=== PATIENT | male | born 1985 | race Asian ===

== ENCOUNTER 2016-08-18 15:13 | Emergency (ER) | payer OTHER, MEDICAID ==
[2016-08-18] MEDS ORDERED: IBUPROFEN 800 MG TABLET PO ONE (16:13)
[2016-08-18] MEDS: IBUPROFEN 800 MG TABLET PO STA (16:16)
== END 2016-08-18 16:39 | disposition home or self-care (01) ==
DX: S92.325A Nondisplaced fracture of second metatarsal bone, left foot, initial encounter for closed fracture (principal); S90.812A Abrasion, left foot, initial encounter; W20.8XXA Other cause of strike by thrown, projected or falling object, initial encounter; Y93.89 Activity, other specified; Y92.89 Other specified places as the place of occurrence of the external cause; Y99.0 Civilian activity done for income or pay; R03.0 Elevated blood-pressure reading, without diagnosis of hypertension; F17.200 Nicotine dependence, unspecified, uncomplicated
CPT/HCPCS: 1040M; 29515; 73630; 99283; A9270

== ENCOUNTER 2016-10-28 19:18 | Emergency (ER) | payer SELFPAY ==
[2016-10-28 19:27] VITALS: BP 133/79
[2016-10-28] MEDS ORDERED: oxyCOD/ACETAMIN 5 MG/325 MG TABLET PO STA (20:17)
[2016-10-28] MEDS ORDERED: CLINDAMYCIN 150 MG CAPSULE PO STA (20:17)
--- NOTE | 2016-10-28 20:21 | ED Physician Documentation ---
PD HPI HEENT - Stated complaint Stated Complaint: JAW,MOUTH PX,SWELLING - Chief complaint Chief Complaint: Heent - History obtained from History obtained from: Patient - History of Present Illness Timing - onset: How many weeks ago (1) Timing - details: Gradual onset, Still present Location: Right ear, Left ear, Mouth Worsens: Swalllowing Associated symptoms: No: Fever Similar symptoms before: Has not had sx before Recently seen: Not recently seen - Additional information Additional information: Patient is a 31 year old male with no significant past medical history who is presenting to the emergency department for mouth pain and bleeding gums. patient states that the symptoms have been going on for the last few weeks. Patient states that he has been brushing his teeth a lot but it has led to bleeding gums. Patient has bilateral wisdom teeth coming in and has dental follow up in a few days. Review of Systems Constitutional: denies: Fever, Chills Eyes: denies: Loss of vision, Decreased vision Ears: reports: Ear pain. denies: Loss of hearing Nose: denies: Rhinorrhea / runny nose, Congestion Throat: reports: Dental pain / toothache, Oral lesions / sores Cardiac: denies: Chest pain / pressure, Palpitations Respiratory: denies: Cough, Wheezing GI: denies: Abdominal Pain, Nausea, Vomiting : reports: Dysuria Musculoskeletal: denies: Neck pain, Extremity pain Neurologic: denies: Generalized weakness, Focal weakness Immunocompromised: denies: Immunocompromised PD PAST MEDICAL HISTORY - Past Medical History Past Medical History: Yes Cardiovascular: None Respiratory: None Endocrine/Autoimmune: None GI: None : None Psych: Bipolar disorder - Past Surgical History Past Surgical History: No Derm: Other - Present Medications Home Medications: Ambulatory Orders Medication Instructions Recorded Confirmed Chlorhexidine Gluconate 15 ml MM Q6H #450 ml 10/28/16 Clindamycin [Cleocin] 450 mg PO Q6H 7 Days 10/28/16 - Allergies Allergies/Adverse Reactions: Allergies Allergy/AdvReac Type Severity Reaction Status Date / Time Penicillins Allergy Unknown Verified 10/28/16 19:27 - Social History Does the pt smoke?: No Smoking Status: Former smoker Does the pt drink ETOH?: Yes Does the pt have substance abuse?: No - Immunizations Immunizations are current?: Yes - POLST Patient has POLST: No PD ED PE NORMAL - Vitals Vital signs reviewed: Yes - General General: Alert and oriented X 3, Well developed/nourished - HEENT HEENT: Atraumatic, PERRL, Pharynx benign - Neck Neck: Supple, no meningeal sign, No JVD - Cardiac Cardiac: RRR, No murmur - Respiratory Respiratory: No respiratory distress - Abdomen Abdomen: Soft, Non tender, Non distended - Derm Derm: Normal color, Warm and dry, No rash - Extremities Extremities: Normal ROM s pain, No edema - Neuro Neuro: Alert and oriented X 3, abrasive band winder 2-12 intact, No motor deficit, No sensory deficit, Normal speech - Psych Psych: Normal mood, Normal affect PD ED PE EXPANDED - HEENT HEENT: Dental decay, Other (bilateral impacted molars, and gingivitis, mild surrounding erythema, no abscess or fluid collection) Results - Vitals Vitals: Vital Signs - 24 hr 10/28/16 19:24 Temperature 36.7 C Heart Rate 80 Respiratory 17 Rate Blood Pressure 133/79 H O2 Saturation 99 Oxygen O2 Source Room air PD MEDICAL DECISION MAKING - ED course Complexity details: reviewed results, re-evaluated patient, considered differential, d/w patient ED course: Patient was seen and examined at bedside. Patient's vital signs were within normal limits. Patient had signs of gingivitis and developing infection around the molars. Patient was treated with clindamycin due to the penicillin allergy as well as one percocet. Prescriptions were written. Patient required no further inpatient work up at this time and patient was stable for discharge with outpatient follow up. Departure - Departure Disposition: 01 Home, Self Care Clinical Impression: Gingivitis Condition: Good Instructions: ED Abscess Tooth Follow-Up: Inga Nelson PA-C [Primary Care Provider] - Within 3 Days Prescriptions: Chlorhexidine Gluconate 15 ml MM Q6H #450 ml Clindamycin [Cleocin] 450 mg PO Q6H 7 Days Comments: Your symptoms today are being caused by gingivitis and impacted wisdom teeth. You will have your first dose of antibiotics today and will need to take it 4 times a day for the next week. You will also need to use the antibiotic rinse four times a day. You should take the antibiotics with yogurt or probiotics. You can use motrin or tylenol as needed for pain. You should go to your appointment at [facility] in two days. You may return to the emergency department at any time for new, worsening or uncontrollable symptoms. Discharge Date/Time: 10/28/16 20:29
[2016-10-28] MEDS ORDERED: oxyCOD/ACETAMIN 5 MG/325 MG TABLET PO ONE (20:23)
[2016-10-28] MEDS ORDERED: CLINDAMYCIN 150 MG CAPSULE PO ONE (20:24)
== END 2016-10-28 20:29 | disposition home or self-care (01) ==
LOC: ED 19:18
DX: K05.10 Chronic gingivitis, plaque induced (principal); Z87.891 Personal history of nicotine dependence
CPT/HCPCS: 99283; A9270

== ENCOUNTER 2018-05-30 14:46 | Emergency (ER) | payer SELFPAY ==
[2018-05-30] MEDS ORDERED: KETOROLAC 30 MG/ML VIAL IVP STA (15:10)
[2018-05-30] MEDS ORDERED: IPRATROPIUM/ALBUTEROL 3 ML NEB INH STA (15:10)
[2018-05-30] MEDS ORDERED: DEXAMETHASONE 10 MG/ML VIAL IVP STA (15:11)
[2018-05-30 15:14] LABS: BASOPHILS # (AUTO) 0.1 10^3/uL (0.0-0.1); BASOPHILS % (AUTO) 1.8 %; EOSINOPHILS # (AUTO) 0.2 10^3/uL (0.0-0.7); EOSINOPHILS % (AUTO) 2.5 %; HGB - HEMOGLOBIN 14.5 g/dL (14.0-18.0); LYMPHOCYTES # (AUTO) 1.9 10^3/uL (1.5-3.5); LYMPHOCYTES % (AUTO) 28.1 %; MEAN CORPUSCULAR HEMOGLOBIN 29.6 pg (27.0-31.0); MEAN CORPUSCULAR HGB CONC 34.3 g/dL (32.0-36.0); MEAN CORPUSCULAR VOLUME 86.5 fL (80.0-94.0); MONOCYTES # (AUTO) 0.6 10^3/uL (0.0-1.0); MONOCYTES % (AUTO) 8.9 %; NEUTROPHILS % (AUTO) 58.7 %; PLT - PLATELET COUNT 242 10^3/uL (130-450); RED BLOOD COUNT 4.91 10^6/uL (4.70-6.10); RED CELL DISTRIBUTION WIDTH 13.2 % (12.0-15.0); WHITE BLOOD COUNT 6.8 x10^3/uL (4.8-10.8)
--- NOTE | 2018-05-30 15:14 | ED Physician Documentation ---
PD HPI CHEST PAIN - Stated complaint Stated Complaint: CHEST PAIN, SOA - Chief complaint Chief Complaint: Cardiac - History obtained from History obtained from: Patient - History of Present Illness Timing - onset: How many weeks ago (1) Timing - onset during: Rest Timing - duration: Weeks (1) Timing - details: Gradual onset, Still present Quality: Pressure Location: Substernal Radiation: Back Improved by: Rest Worsened by: Inspiration, Movement, Palpation Associated symptoms: Shortness of air, Cough. No: Diaphoresis, Nausea, Vomiting Similar symptoms before: Has not had sx before Recently seen: Not recently seen - Additional information Additional information: 33 y/o male with a one week history of anterior chest pain (hard core chest pain) He relates this is worse with inspiration and he is having a hard time getting a full deep breath. He does not use an inhaler. Review of Systems Constitutional: reports: Fatigue. denies: Fever, Chills, Myalgias Eyes: denies: Decreased vision Ears: denies: Ear pain Nose: reports: Rhinorrhea / runny nose, Congestion Throat: reports: Sore throat Cardiac: reports: Chest pain / pressure. denies: Palpitations, Pedal edema, Calf pain Respiratory: reports: Dyspnea, Cough GI: denies: Abdominal Pain, Nausea, Vomiting : denies: Dysuria, Frequency Skin: denies: Rash Musculoskeletal: denies: Neck pain, Back pain, Extremity pain Neurologic: denies: Generalized weakness, Focal weakness PD PAST MEDICAL HISTORY - Past Medical History Cardiovascular: None Respiratory: None Endocrine/Autoimmune: None GI: None : None Psych: Bipolar disorder - Past Surgical History Past Surgical History: No Derm: Other - Present Medications Home Medications: Ambulatory Orders Medication Instructions Recorded Confirmed RX: Chlorhexidine Gluconate 15 ml MM Q6H #450 ml 10/28/16 RX: Clindamycin [Cleocin] 450 mg PO Q6H 7 Days capsule 10/28/16 Azithromycin [Zithromax] 250 mg PO DAILY #6 tablet 05/30/18 Hydrocodone/Acetaminophen 1 - 2 each PO Q6H PRN #14 tablet 05/30/18 [Hydrocodon-Acetaminophen 5-325] RX: Albuterol Sulf [Ventolin Hfa 1 - 2 puffs INH Q4HR PRN #1 inhaler 05/30/18 Inhaler] - Allergies Allergies/Adverse Reactions: Allergies Allergy/AdvReac Type Severity Reaction Status Date / Time Penicillins Allergy Unknown Verified 05/30/18 14:54 - Social History Does the pt smoke?: No Smoking Status: Former smoker Does the pt drink ETOH?: Yes Does the pt have substance abuse?: No - Immunizations Immunizations are current?: Yes - POLST Patient has POLST: No PD ED PE NORMAL - Vitals Vital signs reviewed: Yes (hypertensive ) - General General: Alert and oriented X 3, No acute distress, Well developed/nourished - HEENT HEENT: Atraumatic, PERRL, EOMI, Other (both TM's are flush and the pharynx is with erythema, swelling and extention of the uvula. ) - Neck Neck: Supple, no meningeal sign, No bony TTP, Other (shoddy adenopathy) - Cardiac Cardiac: RRR, No murmur - Respiratory Respiratory: No respiratory distress, Clear bilaterally - Abdomen Abdomen: Soft, Non tender - Back Back: No CVA TTP, No spinal TTP - Derm Derm: Normal color, Warm and dry - Extremities Extremities: No deformity, No edema - Neuro Neuro: Alert and oriented X 3, radiology specialist 2-12 intact, No motor deficit, No sensory deficit, Normal speech Eye Opening: Spontaneous Motor: Obeys Commands Verbal: Oriented GCS Score: 15 - Psych Psych: Normal mood, Normal affect Results - Vitals Vitals: Vital Signs - 24 hr 05/30/18 05/30/18 05/30/18 14:49 15:30 15:51 Temperature 36.9 C 37.1 C Heart Rate 70 66 60 Respiratory 20 10 L 20 Rate Blood Pressure 154/82 H 132/70 H O2 Saturation 98 97 Oxygen O2 Source Room air - EKG (time done) 1453 Rate: Rate (enter#) (69) Rhythm: NSR Intervals: Wide QRS Compare to prior EKG: Old EKG unavailable Computer interpretation: Agree with computer - Labs Labs: Laboratory Tests 05/30/18 05/30/18 05/30/18 15:00 15:00 15:00 WBC 6.8 RBC 4.91 Hgb 14.5 Hct 42.4 MCV 86.5 MCH 29.6 MCHC 34.3 RDW 13.2 Plt Count 242 MPV 8.0 Neut # (Auto) 4.0 Lymph # (Auto) 1.9 Dickenson # (Auto) 0.6 Eos # (Auto) 0.2 Baso # (Auto) 0.1 Absolute Nucleated RBC 0.00 Nucleated RBC % 0.0 Sodium 138 Potassium 3.9 Chloride 106 Carbon Dioxide 25 Anion Gap 7.0 BUN 16 Creatinine 0.7 Estimated GFR (MDRD) 130 Glucose 82 Calcium 8.8 Total Bilirubin 0.7 AST 20 ALT 20 Alkaline Phosphatase 67 Troponin I < 0.04 Total Protein 7.0 Albumin 4.4 Globulin 2.6 Albumin/Globulin Ratio 1.7 Lipase 21 L Group A Strep Rapid 05/30/18 15:05 WBC RBC Hgb Hct MCV MCH MCHC RDW Plt Count MPV Neut # (Auto) Lymph # (Auto) Dickenson # (Auto) Eos # (Auto) Baso # (Auto) Absolute Nucleated RBC Nucleated RBC % Sodium Potassium Chloride Carbon Dioxide Anion Gap BUN Creatinine Estimated GFR (MDRD) Glucose Calcium Total Bilirubin AST ALT Alkaline Phosphatase Troponin I Total Protein Albumin Globulin Albumin/Globulin Ratio Lipase Group A Strep Rapid Negative - Rads (name of study) chest 1 view Radiology: Prelim report reviewed (Impression: No evidence for acute cardiopulmonary process.), EMP read indepedently, See rad report PD MEDICAL DECISION MAKING - ED course Complexity details: reviewed old records, reviewed results, re-evaluated patient, considered differential, d/w patient ED course: 33 y/o male with chest pain and difficulty getting a full deep breath appears to have some RAD and marked swelling of the uvula. He is administered a duo-neb treatment, toradal and decadron. He does have some improvement in his breathing with the treatment. Departure - Departure Disposition: 01 Home, Self Care Clinical Impression: Chest wall muscle strain, Asthmatic bronchitis Condition: Stable Instructions: ED Bronchitis Asthmatic, ED Chest Pain Costochondritis Follow-Up: [facility] [Provider Group] Prescriptions: RX: Albuterol Sulf [Ventolin Hfa Inhaler] 1 - 2 puffs INH Q4HR PRN #1 inhaler PRN Reason: Shortness Of Air/Wheezing Azithromycin [Zithromax] 250 mg PO DAILY #6 tablet Hydrocodone/Acetaminophen [Hydrocodon-Acetaminophen 5-325] 1 - 2 each PO Q6H PRN #14 tablet PRN Reason: pain Discharge Date/Time: 05/30/18 16:02
--- NOTE | 2018-05-30 15:20 | XRAY Report ---
Reason: CP Procedure Date: 05/30/2018 Accession Number: [id number] / [id number] Procedure: XR - Chest 1 View X-Ray CPT Code: 88983 FULL RESULT: EXAM: CHEST RADIOGRAPHY EXAM DATE: 05/30/2018 03:08 PM. CLINICAL HISTORY: CP. COMPARISON: None. TECHNIQUE: 1 view. FINDINGS: Lungs/Pleura: No focal opacities evident. No pleural effusion. No pneumothorax. Mediastinum: Within exam limitations, the cardiomediastinal contour is normal. Other: None. IMPRESSION: No evidence for acute cardiopulmonary process. RADIA
[2018-05-30 15:29] LABS: ALBUMIN 4.4 g/dL (3.2-5.5); ALBUMIN/GLOBULIN RATIO 1.7 (1.0-2.2); BILIRUBIN,TOTAL 0.7 mg/dL (0.2-1.0); CALCIUM 8.8 mg/dL (8.5-10.3); CREATININE 0.7 mg/dL (0.6-1.2)
[2018-05-30 15:52] VITALS: BP 132/70
== END 2018-05-30 16:02 | disposition home or self-care (01) ==
LOC: ED 14:46
DX: S29.011A Strain of muscle and tendon of front wall of thorax, initial encounter (principal); X58.XXXA Exposure to other specified factors, initial encounter; J45.909 Unspecified asthma, uncomplicated; Z87.891 Personal history of nicotine dependence; R94.31 Abnormal electrocardiogram [ECG] [EKG]
CPT/HCPCS: 36415; 71045; 80053; 83690; 84484; 85025; 87070; 87430; 93005; 94640; 94664; 96374; 99283

== ENCOUNTER 2018-10-18 19:39 | Emergency (ER) | payer SELFPAY ==
[2018-10-18 19:45] VITALS: BP 141/84
[2018-10-18] MEDS ORDERED: IBUPROFEN 800 MG TABLET PO STA (20:31)
[2018-10-18] MEDS ORDERED: CEPHALEXIN 250 MG Prepack 8 PO ONE (20:31)
--- NOTE | 2018-10-18 20:34 | ED Physician Documentation ---
PD HPI LOWER EXT INJURY - Stated complaint Stated Complaint: RT LEG PX - Chief complaint Chief Complaint: Ext Problem - History obtained from History obtained from: Patient - History of Present Illness PD HPI LOW EXT INJURY LOCATION: Right (He had chronic issues with varicose veins on the right leg with recurrent MSSA infections. He had a wound on the medial right calf for about 2 weeks that is slowly growing. Is not feeling sick or febrile but does have leg spasms. Previously he was referred to a vascular surgeon but failed to follow-up.) Review of Systems Constitutional: denies: Fever, Chills Cardiac: reports: Reviewed and negative Respiratory: reports: Reviewed and negative GI: reports: Reviewed and negative PD PAST MEDICAL HISTORY - Past Medical History Past Medical History: Yes Cardiovascular: None Respiratory: None Neuro: None Endocrine/Autoimmune: None GI: None : None HEENT: None Psych: Bipolar disorder Musculoskeletal: None Derm: None - Past Surgical History Past Surgical History: No Derm: Other - Present Medications Home Medications: Ambulatory Orders Medication Instructions Recorded Confirmed Cephalexin [Keflex] 500 mg PO Q6H #40 capsule 10/18/18 - Allergies Allergies/Adverse Reactions: Allergies Allergy/AdvReac Type Severity Reaction Status Date / Time Penicillins Allergy Unknown Verified 10/18/18 19:45 - Social History Does the pt smoke?: No Smoking Status: Never smoker Does the pt drink ETOH?: Yes Does the pt have substance abuse?: No - Immunizations Immunizations are current?: Yes - POLST Patient has POLST: No PD ED PE NORMAL - Vitals Vital signs reviewed: Yes - General General: Alert and oriented X 3, No acute distress - Extremities Extremities: Other (He has a lot of varicose veins especially on the right, there is a wound about the size of a nickel on the right calf that appears mildly infected but there is nothing to culture. There is mild surrounding cellulitis.) - Neuro Neuro: Alert and oriented X 3, Normal speech Results - Vitals Vitals: Vital Signs - 24 hr 10/18/18 19:42 Temperature 36.7 C Heart Rate 70 Respiratory 14 Rate Blood Pressure 141/84 H O2 Saturation 100 Oxygen O2 Source Room air Departure - Departure Disposition: 01 Home, Self Care Clinical Impression: Cellulitis of right leg Condition: Good Record reviewed to determine appropriate education?: Yes Instructions: Cellulitis Dc Follow-Up: [facility] [Provider Group] Prescriptions: Cephalexin [Keflex] 500 mg PO Q6H #40 capsule Comments: Call your doctor to arrange a follow-up appointment, make the next available appointment. In the interim, return anytime if worse or if new symptoms develop.
== END 2018-10-18 20:51 | disposition home or self-care (01) ==
LOC: ED 19:39
DX: L03.115 Cellulitis of right lower limb (principal); I83.91 Asymptomatic varicose veins of right lower extremity
CPT/HCPCS: 99283; A9270

== ENCOUNTER 2018-12-22 16:55 | Outpatient (CLI) | payer SELFPAY | END 2018-12-22 23:59 | disposition home or self-care (01) | LOC: LAB.R 16:55 | PROVIDERS: ATTEND Family Medicine | DX: I83.009 Varicose veins of unspecified lower extremity with ulcer of unspecified site (principal) | CPT/HCPCS: 87070; 87075; 87147; 87205 ==

== ENCOUNTER 2020-11-05 22:38 | Emergency (ER) | payer SELFPAY ==
[2020-11-05 23:00] VITALS: BP 151/84
--- NOTE | 2020-11-06 01:00 | ED Physician Documentation ---
PD HPI HEENT - Stated complaint Stated Complaint: TOOTH PX - Chief complaint Chief Complaint: Heent - History obtained from History obtained from: Patient - History of Present Illness Timing - onset: How many weeks ago (few weeks of right lower tooth pain at area of decay. Has increased pain few days and swelling of gum now.) Timing - duration: Days Timing - details: Gradual onset, Still present Location: Tooth (right lower incisor) Improves: No: Medication (tried Tylenol and Advil at home) Worsens: Temperatures, Everything Associated symptoms: Headache. No: Fever, Congestion, Swollen nodes, Facial swelling Recently seen: Not recently seen Review of Systems Constitutional: denies: Fever, Chills Nose: denies: Rhinorrhea / runny nose, Congestion Throat: denies: Sore throat Respiratory: denies: Cough GI: denies: Abdominal Pain, Nausea, Vomiting Skin: denies: Rash, Lesions PD PAST MEDICAL HISTORY - Past Medical History Past Medical History: Yes Cardiovascular: None Respiratory: None Neuro: None Endocrine/Autoimmune: None GI: None : None HEENT: None Psych: Bipolar disorder Musculoskeletal: None Derm: None - Past Surgical History Past Surgical History: No Derm: Other - Present Medications Home Medications: Ambulatory Orders Medication Instructions Recorded Confirmed Clindamycin [Cleocin] 300 mg PO TID 6 Days #18 cap 11/06/20 Oxycodone HCl/Acetaminophen 1 each PO Q6H PRN #14 tablet 11/06/20 [Percocet 5-325 mg Tablet] - Allergies Allergies/Adverse Reactions: Allergies Allergy/AdvReac Type Severity Reaction Status Date / Time Penicillins Allergy Unknown Verified 10/18/18 19:45 - Social History Does the pt smoke?: No Smoking Status: Never smoker Does the pt drink ETOH?: Yes Does the pt have substance abuse?: No - Immunizations Immunizations are current?: Yes - POLST Patient has POLST: No PD ED PE NORMAL - Vitals Vital signs reviewed: Yes - General General: Alert and oriented X 3, Well developed/nourished, Other (appears very uncomfortable due to tooth pain right mandible.) - HEENT HEENT: No: Dentition benign (decay generally. Notable decay right lower incisor. There is tenderness to percussion and palpation. Some gum swelling. No fluctuance. ) - Neck Neck: Supple, no meningeal sign, No adenopathy - Cardiac Cardiac: RRR, No murmur - Respiratory Respiratory: Clear bilaterally - Derm Derm: Normal color, Warm and dry, No rash Results - Vitals Vitals: Vital Signs - 24 hr 11/05/20 22:56 Temperature 36.4 C L Heart Rate 81 Respiratory 20 Rate Blood Pressure 151/84 H O2 Saturation 95 Oxygen O2 Source Room air PD MEDICAL DECISION MAKING - ED course Complexity details: considered differential (dental caries with pain now, presume infection. ), d/w patient Departure - Departure Disposition: Home, Self Care Clinical Impression: Pain due to dental caries, Dental infection Condition: Stable Record reviewed to determine appropriate education?: Yes Instructions: ED Tooth Pain Follow-Up: [facility] [Provider Group] Prescriptions: Clindamycin [Cleocin] 300 mg PO TID 6 Days #18 cap Oxycodone HCl/Acetaminophen [Percocet 5-325 mg Tablet] 1 each PO Q6H PRN #14 tablet PRN Reason: pain Comments: You can try to cover the decayed area of the tooth with mineral oil or oil of clove to have it less exposed for the nerve. Numbing medicine such as Anbesol can help as well. Use some anti-inflammatory such as ibuprofen 600 mg 3 times a day with food. To that add Tylenol or oxycodone as needed for worse pain. I would anticipate improvement in the degree of pain over the next couple of days with the anti-inflammatory as well as clindamycin antibiotic for infection. However you need to follow-up with the dentist for more definitive care of the tooth. Call for soonest appointment. Discharge Date/Time: 11/06/20 02:11
[2020-11-06] MEDS ORDERED: CLINDAMYCIN 150 MG CAPSULE PO STA (01:24)
[2020-11-06] MEDS ORDERED: KETOROLAC 30 MG/ML VIAL IM STA (01:24)
[2020-11-06] MEDS ORDERED: HYDROcod/ACETAM 5/325 MG TABLET PO STA (01:24)
[2020-11-06] MEDS ORDERED: oxyCODONE/ACET 5/325 Prepack 4 PO STA (01:24)
[2020-11-06] MEDS ORDERED: LIDOCAINE VISCOUS 2% 15 ML UDC MM STA (01:35)
== END 2020-11-06 02:11 | disposition home or self-care (01) ==
LOC: ED 22:38
DX: K04.7 Periapical abscess without sinus (principal); K02.9 Dental caries, unspecified; Z88.0 Allergy status to penicillin
CPT/HCPCS: 96372; 99283; 99284; A9270

== ENCOUNTER 2021-07-11 08:00 | Outpatient (CLI) | payer SELFPAY ==
[2021-07-11 17:59] LABS: BASOPHILS % (AUTO) 0.5 %; EOSINOPHILS # (AUTO) 0.1 10^3/uL (0.0-0.7); HCT - HEMATOCRIT 46.3 % (42.0-52.0); HGB - HEMOGLOBIN 15.7 g/dL (14.0-18.0); LYMPHOCYTES % (AUTO) 25.8 %; MEAN CORPUSCULAR HEMOGLOBIN 30.1 pg (27.0-31.0); MEAN CORPUSCULAR HGB CONC 33.9 g/dL (32.0-36.0); MEAN CORPUSCULAR VOLUME 88.7 fL (80.0-94.0); MEAN PLATELET VOLUME 10.3 fL (7.4-11.4); MONOCYTES # (AUTO) 0.6 10^3/uL (0.0-1.0); MONOCYTES % (AUTO) 8.1 %; NEUTROPHILS % (AUTO) 64.3 %; PLT - PLATELET COUNT 278 10^3/uL (130-450); RED BLOOD COUNT 5.22 10^6/uL (4.70-6.10); RED CELL DISTRIBUTION WIDTH 13.1 % (12.0-15.0); WHITE BLOOD COUNT 7.8 x10^3/uL (4.8-10.8)
[2021-07-11 18:56] LABS: ALBUMIN 4.6 g/dL (3.2-5.5); ALBUMIN/GLOBULIN RATIO 1.6 (1.0-2.2); BILIRUBIN,TOTAL 0.8 mg/dL (0.2-1.0); CALCIUM 8.8 mg/dL (8.5-10.3); CREATININE 0.7 mg/dL (0.6-1.2); POTASSIUM 3.9 mmol/L (3.5-5.0); TOTAL PROTEIN 7.5 g/dL (6.7-8.2)
== END 2021-07-11 23:59 ==
LOC: LAB.N 08:00
PROVIDERS: ATTEND Physician Assistant
DX: F31.9 Bipolar disorder, unspecified (principal)
CPT/HCPCS: 36415; 80053; 85025